=== PATIENT | female | born 1945 | race Caucasian/White ===

== ENCOUNTER 2017-07-22 14:38 | Outpatient (RCR) | payer MEDICARE ==
[2016-11-02 11:11] VITALS: BMI 41.5
[2017-07-13 12:47] VITALS: BP 116/85
[2017-07-13 12:55] LABS: PLATELET COUNT, AUTOMATED 285 K/uL (150-450)
[~2017-07-22 14:38] MED LIST: ACET-1966 PO; ADV250/50 INH; ALB18R IH; ALBU2.5V36 INH; ALBU2.5V44 IH; ALBU8.5H IH; ALBU8.5H11 INH; ATOR20TA65 PO; AZIT-1 PO; AZIT-18 PO; CEFU500T50 PO; CHOL10005 PO; CHOL200074 PO; CLIN-75 PO; CYCL-277 PO; DABI150C3 PO; DICL100G39 TOP; DICL100G39 TP; DILT120C28 PO; DILT120T PO; DOC100 PO; FERR-53 PO; FLU IM; FLU45SYR17 IM; FLU45SYR25 IM ONLY; FLUT1DIS28 IH; FURO-45 PO; FURO-47 PO; FURO40TA35 PO; FURO80TA70 PO; GOLYTE PO; GUAI600T57 PO; HYDR-385 PO; LEVO-85 PO; LIDO700A19 TP; LIDO700A29 TD; METH4TAB66 PO; METO-253 PO; METO25TA93 PO; OMEP-137 PO; OXYGEN INH; OXYGENHOME INH; PNEU0.5D3 IM; POTA15TA PO; POTA20TA10 PO; POTA20TA85 PO; POTA20TA94 PO; POTT20 PO; PRE10 PO; PRED-1 PO; PRED20TA6 PO; Portable Oxygen; RIVA20TA PO; SPIR25TA78 PO; SULF-198 PO; TIO18R INH; TRAM-420 PO; TRIA15CR40 TP; UMEC62.5 IH; UMEC62.5 INH; WAR25 PO; [UNRECOGNIZED DRUG - CODE] MC; [UNRECOGNIZED DRUG - OTHER]
[2017-07-22 14:54] VITALS: BP 122/70
--- NOTE | 2017-07-22 20:22 | ONCOLOGY FOLLOW UP NOTE ---
EVENT DATE: July 22, 2017 DIAGNOSES 1. 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 2. Negative genetic testing for Topete syndrome. 3. Multiple thyroid nodules. 4. Chronic obstructive pulmonary disease. 5. History of congestive heart failure. 6. History of hypertension. CHIEF COMPLAINT The patient is here today for followup of her colon cancer. ONCOLOGY HISTORY The patient is a 72-year-old female who presented with rectal bleeding and patient ended up having colonoscopy done on December 05, 2015, and there were about ten polyps between sessile and pedunculated. Most of them were sessile in different parts of the colon. There were two in the descending colon with sessile polyps. Another two sessile polyps in the mid-transverse colon. There were two sessile polyps in the mid descending colon and two pedunculated polyps in the distal descending colon. There were three sessile polyps in the sigmoid colon. Not all the polyps were resected, but the polyp from the ascending colon was tubulovillous adenoma. Another one from the distal descending colon was tubovillous adenoma. Another one in the ascending colon was with no diagnostic abnormality, but there was a pedunculated polyp from the distal descending colon which came back positive for moderately differentiated adenocarcinoma with tubulovillous adenoma showing high grade dysplasia. The tumor invades the submucosa, but no lymphovascular invasion or perineural invasion. The cauterized margin was free of carcinoma, but appears focally involved by the adenoma. So, the tumor was staged as stage I (pT1 pNx cM0). KRAS and BRAF mutations from the tumor came back negative and NRAS mutation was also negative. CT of chest, abdomen and pelvis done on December 14, 2015 was significant for multiple right-sided thyroid nodules including a nodule with thick calcified rim, increased in size to 2.5 cm. There was moderate compression fracture of lumbar 5 and heterogenous spleen, but other than that the patient does not have any other problem. There was some right lower lobe atelectasis and linear scarring versus atelectasis in the left lower lobe. The patient had a positive family history in her mother and two brothers. All of them had colon cancer between sixty to seventy years of age. With the number of polyps detected during colonoscopy, I believe the patient could have genetic mutation consistent with Topete syndrome. Genetic testing by [facility] for Topete Syndrome came back negative. HISTORY OF PRESENT ILLNESS The patient is here today for followup of her colon cancer. She is doing fine currently. Apart from having easy bruising from her Pradaxa therapy, the patient does not have any other problem. She denies any GI symptoms. PAST MEDICAL HISTORY 1. Colon cancer diagnosed November 2015. 2. History of anemia. 3. Congestive heart failure. 4. COPD. 5. Hypertension. 6. History of heart disease. PAST SURGICAL HISTORY 1. . 2. Cholecystectomy. 3. Rods in the left femur because of fracture. SOCIAL HISTORY The patient is a . She has two daughters and one son. She quit smoking twenty years ago after a half pack a day for twenty years. Denies any abuse of alcohol or illicit drugs. FAMILY HISTORY Mother had colon cancer in her sixties. Maternal grandmother had head and neck cancer. Brother had colon cancer in his seventies. Another brother with colon cancer in his sixties. CURRENT MEDICATIONS 1. Omeprazole 20 mg tablet daily. 2. Advair 250/50, one puff twice daily. 3. Cyclobenzaprine 5 mg three times daily. 4. Lasix 40 mg daily. 5. Hydrocodone/acetaminophen 5/325 mg one tablet q.6h. 6. Ellipta 62.5 mcg by inhalation. 7. Metoprolol 50 mg twice daily. 8. Pradaxa 150 mg twice daily. 9. Spironolactone 25 mg twice daily. 10. Voltaren 1% gel as needed for pain. 11. ProAir HFA 8.5 gm take two puffs by inhalation three times daily. 12. Vitamin D3 at 1000 units orally daily. ALLERGIES XELODA, which causes itching. REVIEW OF SYSTEMS CONSTITUTIONAL: No appetite or weight change. No fever, chills or sweating. No recent infection. HEENT: Ears: No tinnitus or hearing problem. Nose: No nasal discharge or epistaxis. Throat: No sore throat or mouth ulcers. Eyes: No diplopia or visual changes. RESPIRATORY: No shortness of breath. No cough, expectoration or hemoptysis. CARDIOVASCULAR: No chest pain, orthopnea, or paroxysmal nocturnal dyspnea (PND) . No edema. No palpitations. GASTROINTESTINAL: No nausea or vomiting. No diarrhea or constipation. No change in bowel movements. No heartburn or swallowing difficulties. No abdominal pain. No jaundice. No hematemesis, melena or rectal bleeding. GENITOURINARY: No hematuria or dysuria. MUSCULOSKELETAL: No pain in the muscles, joints or bones. NEUROLOGICAL: No tingling or numbness in the hands or feet. No headaches or convulsions. HEMATOLOGIC/LYMPHATIC: The patient has easy bruising from Pradaxa therapy. SKIN: No skin rash or lumps. PSYCHIATRIC: No anxiety or depression. PHYSICAL EXAMINATION GENERAL: Looks stable. Well-developed, well-nourished, and in no acute distress. VITAL SIGNS: Blood pressure 122/70, pulse 69 per minute, respirations 16 per minute, temperature 97.2, pulse ox 96% on room air. HEENT: Head: Atraumatic. No sinus tenderness to palpation. Eyes: No icterus or conjunctivitis. Mouth and throat: No oral thrush or mucositis. NECK: Supple. No cervical or supraclavicular lymphadenopathy. LUNGS: She has diminished breath sounds bilaterally. HEART: Regular rate and rhythm. No gallops, murmurs, clicks or rubs. ABDOMEN: Soft and lax. No tenderness. No hepatosplenomegaly. No masses. EXTREMITIES: No cyanosis, clubbing or edema. LYMPHATICS: No peripheral lymphadenopathy. NEUROLOGICAL: Conscious, alert and oriented times three. No focal motor or sensory deficits. PSYCHIATRIC: Mood and affect appear normal. SKIN: No skin rash, bruise or purpuric eruption. DIAGNOSTIC DATA CBC showed white count 8.4, hemoglobin 12.3, hematocrit 38.4, platelets 285, 000. Chem panel totally normal except potassium 3, chloride 95, carbon dioxide 33, blood sugar 145, alkaline phosphatase 131. CEA is 4.1 which is stable, it was 4 last visit. ASSESSMENT 1. 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 No lymphovascular invasion. Margins were negative for carcinoma, but were positive for adenoma. KRAS, NRAS , BRAF mutation all came back negative, so the patient has wild type mutation. Given her early stage there was no indication of adjuvant chemotherapy, and the patient is doing fine currently. Her genetic testing for Topete syndrome came back negative. Her CEA is stable, currently 4.1 which is up from 4. I am planning to continue followup. I will see her again in six months with CBC, chem panel and CEA at that time. 2. Positive family history of polyps of the colon, including the mother and two brothers, but she tested negative for Otpete syndrome. 3. Multiple thyroid nodules on the right side, followed by Dr. Prajapati. 4. Chronic obstructive pulmonary disease. 6. History of pulmonary embolus, on Pradaxa 150 mg twice daily. PLAN 1. Continue followup. 2. The patient to return in six months with CBC, chem panel and CEA. 3. Continue Pradaxa 150 mg twice daily. 5. The patient to contact us for any new concerns or complaints. ART
[2017-08-06] MEDS ORDERED: POTA20TA10 PO (16:13)
== END 2017-08-13 09:01 | disposition home or self-care (01) ==
LOC: ONC 14:38
PROVIDERS: ATTEND Internal Medicine Hematology
DX: Z85.038 Personal history of other malignant neoplasm of large intestine (principal); E04.2 Nontoxic multinodular goiter; J44.9 Chronic obstructive pulmonary disease, unspecified; Z86.711 Personal history of pulmonary embolism; Z79.01 Long term (current) use of anticoagulants; I50.9 Heart failure, unspecified; Z87.891 Personal history of nicotine dependence; Z79.899 Other long term (current) drug therapy
CPT/HCPCS: 36415; 82040; 82247; 82310; 82374; 82378; 82435; 82565; 82947; 84075; 84132; 84155; 84295; 84450; 84460; 84520; 85025; 99212

== ENCOUNTER → 2017-07-30 | Outpatient (CLI) | payer MEDICARE ==
[2016-11-02 11:11] VITALS: BMI 41.5
== END ==
LOC: LAB 14:45
PROVIDERS: ATTEND Nurse Practitioner Family
DX: E87.6 Hypokalemia (principal)
CPT/HCPCS: 36415; 82310; 82374; 82435; 82565; 82947; 84132; 84295; 84520

== ENCOUNTER 2018-01-28 15:45 | Outpatient (RCR) | payer MEDICARE ==
[2016-11-02 11:11] VITALS: Wt 107.9 kg
[2018-01-19 13:43] LABS: PLATELET COUNT, AUTOMATED 288 K/uL (150-450)
[2018-01-19 13:49] VITALS: BP 106/62
[~2018-01-28 15:45] MED LIST changes: +SPIR25TA80 PO
[2018-01-28 16:12] VITALS: BP 125/70
--- NOTE | 2018-01-28 19:16 | ONCOLOGY FOLLOW UP NOTE ---
EVENT DATE: January 28, 2018 DIAGNOSES 1. 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 2. Negative genetic testing for Topete syndrome. 3. Multiple thyroid nodules. 4. Chronic obstructive pulmonary disease. 5. History of congestive heart failure. 6. History of hypertension. CHIEF COMPLAINT The patient is here today for followup of her colon cancer. ONCOLOGY HISTORY The patient is a 72-year-old female who presented with rectal bleeding and patient ended up having colonoscopy done on December 05, 2015, and there were about ten polyps between sessile and pedunculated. Most of them were sessile in different parts of the colon. There were two in the descending colon with sessile polyps. Another two sessile polyps in the mid-transverse colon. There were two sessile polyps in the mid descending colon and two pedunculated polyps in the distal descending colon. There were three sessile polyps in the sigmoid colon. Not all the polyps were resected, but the polyp from the ascending colon was tubulovillous adenoma. Another one from the distal descending colon was tubovillous adenoma. Another one in the ascending colon was with no diagnostic abnormality, but there was a pedunculated polyp from the distal descending colon which came back positive for moderately differentiated adenocarcinoma with tubulovillous adenoma showing high grade dysplasia. The tumor invades the submucosa, but no lymphovascular invasion or perineural invasion. The cauterized margin was free of carcinoma, but appears focally involved by the adenoma. So, the tumor was staged as stage I (pT1 pNx cM0). KRAS and BRAF mutations from the tumor came back negative and NRAS mutation was also negative. CT of chest, abdomen and pelvis done on December 14, 2015 was significant for multiple right-sided thyroid nodules including a nodule with thick calcified rim, increased in size to 2.5 cm. There was moderate compression fracture of lumbar 5 and heterogenous spleen, but other than that the patient does not have any other problem. There was some right lower lobe atelectasis and linear scarring versus atelectasis in the left lower lobe. The patient had a positive family history in her mother and two brothers. All of them had colon cancer between sixty to seventy years of age. With the number of polyps detected during colonoscopy, I believe the patient could have genetic mutation consistent with Topete syndrome. Genetic testing by [facility] for Topete Syndrome came back negative. HISTORY OF PRESENT ILLNESS The patient is here today for followup of her colon cancer. She is complaining of cough with expectoration. She has arthritis in her hands. She is complaining of passing blood in the stools for one day only, but the patient was using Pradaxa. PAST MEDICAL HISTORY 1. Colon cancer diagnosed November 2015. 2. History of anemia. 3. Congestive heart failure. 4. COPD. 5. Hypertension. 6. History of heart disease. PAST SURGICAL HISTORY 1. . 2. Cholecystectomy. 3. Rods in the left femur because of fracture. SOCIAL HISTORY The patient is a . She has two daughters and one son. She quit smoking twenty years ago after a half pack a day for twenty years. Denies any abuse of alcohol or illicit drugs. FAMILY HISTORY Mother had colon cancer in her sixties. Maternal grandmother had head and neck cancer. Brother had colon cancer in his seventies. Another brother with colon cancer in his sixties. CURRENT MEDICATIONS 1. Omeprazole 20 mg tablet daily. 2. Advair 250/50, one puff twice daily. 3. Cyclobenzaprine 5 mg three times daily. 4. Lasix 40 mg daily. 5. Hydrocodone/acetaminophen 5/325 mg one tablet q.6h. 6. Ellipta 62.5 mcg by inhalation. 7. Metoprolol 50 mg twice daily. 8. Pradaxa 150 mg twice daily. 9. Spironolactone 25 mg twice daily. 10. Voltaren 1% gel as needed for pain. 11. ProAir HFA 8.5 gm take two puffs by inhalation three times daily. 12. Vitamin D3 at 1000 units orally daily. ALLERGIES XELODA, which causes itching. REVIEW OF SYSTEMS CONSTITUTIONAL: No appetite or weight change. No fever, chills or sweating. No recent infection. HEENT: Ears: No tinnitus or hearing problem. Nose: No nasal discharge or epistaxis. Throat: No sore throat or mouth ulcers. Eyes: No diplopia or visual changes. RESPIRATORY: No shortness of breath. Sheh as cough with expectoration. No hemoptysis. CARDIOVASCULAR: No chest pain, orthopnea, or paroxysmal nocturnal dyspnea (PND) . No edema. No palpitations. GASTROINTESTINAL: No nausea or vomiting. No diarrhea or constipation. No change in bowel movements. No heartburn or swallowing difficulties. No abdominal pain. No jaundice. No hematemesis, melena. She has had one episode of bleeding per rectum which resolved spontaneously. GENITOURINARY: No hematuria or dysuria. MUSCULOSKELETAL: She has arthritis n the hands. NEUROLOGICAL: No tingling or numbness in the hands or feet. No headaches or convulsions. HEMATOLOGIC/LYMPHATIC: The patient has easy bruising from Pradaxa therapy. SKIN: No skin rash or lumps. PSYCHIATRIC: No anxiety or depression. PHYSICAL EXAMINATION GENERAL: Looks stable. Well-developed, well-nourished, and in no acute distress. VITAL SIGNS: Blood pressure 125/70, pulse 98 per minute, respirations 16 per minute, temperature 98, pulse ox 89% on 3L oxygen. HEENT: Head: Atraumatic. No sinus tenderness to palpation. Eyes: No icterus or conjunctivitis. Mouth and throat: No oral thrush or mucositis. NECK: Supple. No cervical or supraclavicular lymphadenopathy. LUNGS: She has diminished breath sounds bilaterally. HEART: Regular rate and rhythm. No gallops, murmurs, clicks or rubs. ABDOMEN: Soft and lax. No tenderness. No hepatosplenomegaly. No masses. EXTREMITIES: No cyanosis, clubbing or edema. LYMPHATICS: No peripheral lymphadenopathy. NEUROLOGICAL: Conscious, alert and oriented times three. No focal motor or sensory deficits. PSYCHIATRIC: Mood and affect appear normal. SKIN: No skin rash, bruise or purpuric eruption. DIAGNOSTIC DATA CBC showed white count 7.1, hemoglobin 11.9, hematocrit 37.2, platelets 288, 000. Chem panel totally normal except chloride 95, carbon dioxide 36, blood sugar 111, calcium 8, albumin 3.3, alkaline phosphatase 129. CEA is 5.1, which is up from 4.1 with his last visit. ASSESSMENT 1. 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 No lymphovascular invasion. Margins were negative for carcinoma, but were positive for adenoma. KRAS, NRAS , BRAF mutation all came back negative, so the patient has wild type mutation. Given her early stage there was no indication of adjuvant chemotherapy, and the patient did fine. Her genetic testing for Topete syndrome came back negative. Her CEA showed gradual rise lately. It eliezer from 4 to 4.1 and currently 5.1. I am planning to get a PET/CT scan for further evaluation especially with her history of one episode of passing blood in her stools, which the patient saw due to her blood thinner with Pradaxa. I will see her in a week for further evaluation and management after the PET scan. 2. Positive family history for polyps of the colon, including mother and two brothers, but she tested negative for Topete syndrome. 3. Multiple thyroid nodules on the right side, followed by Dr. Prajapati. 4. Chronic obstructive pulmonary disease. 6. History of pulmonary embolism, on Pradaxa 150 mg twice daily. PLAN 1. PET CT scan . 2. Patient to return in one week for further evaluation and management. 3. Continue Pradaxa 150 mg twice daily. 5. The patient to contact us for any new concerns or complaints. ART
== END 2018-02-01 14:29 | disposition home or self-care (01) ==
LOC: ONC 15:45
PROVIDERS: ATTEND Internal Medicine Hematology
DX: C18.9 Malignant neoplasm of colon, unspecified (principal); E04.2 Nontoxic multinodular goiter; J44.9 Chronic obstructive pulmonary disease, unspecified; Z86.711 Personal history of pulmonary embolism; Z79.01 Long term (current) use of anticoagulants; R05 Cough; Z87.891 Personal history of nicotine dependence; Z79.899 Other long term (current) drug therapy
CPT/HCPCS: 36415; 82378; 85025; G0463; 82040; 82247; 82310; 82374; 82435; 82565; 82947; 84075; 84132; 84155; 84295; 84450; 84460; 84520; 99212

== ENCOUNTER → 2018-03-31 | Outpatient (CLI) | payer MEDICARE ==
[2016-11-02 11:11] VITALS: BMI 41.5
== END ==
LOC: RESP 20:09
PROVIDERS: ATTEND Nurse Practitioner Family
DX: G47.33 Obstructive sleep apnea (adult) (pediatric) (principal); G47.61 Periodic limb movement disorder; G47.36 Sleep related hypoventilation in conditions classified elsewhere

== ENCOUNTER 2018-04-22 15:12 | Outpatient (RCR) | payer MEDICARE ==
[2016-11-02 11:11] VITALS: Wt 103.2 kg
[2018-02-18 12:53] VITALS: BP 114/74
--- NOTE | 2018-03-07 10:13 | ONCOLOGY FOLLOW UP NOTE ---
]EVENT DATE: January 28, 2018 DIAGNOSES 1. 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 2. Negative genetic testing for Topete syndrome. 3. Multiple thyroid nodules. 4. Chronic obstructive pulmonary disease. 5. History of congestive heart failure. 6. History of hypertension. CHIEF COMPLAINT The patient is here today for followup of her colon cancer. ONCOLOGY HISTORY The patient is a 72-year-old female who presented with rectal bleeding and patient ended up having colonoscopy done on December 05, 2015, and there were about ten polyps between sessile and pedunculated. Most of them were sessile in different parts of the colon. There were two in the descending colon with sessile polyps. Another two sessile polyps in the mid-transverse colon. There were two sessile polyps in the mid descending colon and two pedunculated polyps in the distal descending colon. There were three sessile polyps in the sigmoid colon. Not all the polyps were resected, but the polyp from the ascending colon was tubulovillous adenoma. Another one from the distal descending colon was tubovillous adenoma. Another one in the ascending colon was with no diagnostic abnormality, but there was a pedunculated polyp from the distal descending colon which came back positive for moderately differentiated adenocarcinoma with tubulovillous adenoma showing high grade dysplasia. The tumor invades the submucosa, but no lymphovascular invasion or perineural invasion. The cauterized margin was free of carcinoma, but appears focally involved by the adenoma. So, the tumor was staged as stage I (pT1 pNx cM0). KRAS and BRAF mutations from the tumor came back negative and NRAS mutation was also negative. CT of chest, abdomen and pelvis done on December 14, 2015 was significant for multiple right-sided thyroid nodules including a nodule with thick calcified rim, increased in size to 2.5 cm. There was moderate compression fracture of lumbar 5 and heterogenous spleen, but other than that the patient does not have any other problem. There was some right lower lobe atelectasis and linear scarring versus atelectasis in the left lower lobe. The patient had a positive family history in her mother and two brothers. All of them had colon cancer between sixty to seventy years of age. With the number of polyps detected during colonoscopy, I believe the patient could have genetic mutation consistent with Topete syndrome. Genetic testing by [facility] for Topete Syndrome came back negative. HISTORY OF PRESENT ILLNESS The patient is here today for followup of her colon cancer. She is complaining of cough with expectoration. She has arthritis in her hands. She is complaining of passing blood in the stools for one day only, but the patient was using Pradaxa. PAST MEDICAL HISTORY 1. Colon cancer diagnosed November 2015. 2. History of anemia. 3. Congestive heart failure. 4. COPD. 5. Hypertension. 6. History of heart disease. PAST SURGICAL HISTORY 1. . 2. Cholecystectomy. 3. Rods in the left femur because of fracture. SOCIAL HISTORY The patient is a . She has two daughters and one son. She quit smoking twenty years ago after a half pack a day for twenty years. Denies any abuse of alcohol or illicit drugs. FAMILY HISTORY Mother had colon cancer in her sixties. Maternal grandmother had head and neck cancer. Brother had colon cancer in his seventies. Another brother with colon cancer in his sixties. CURRENT MEDICATIONS 1. Omeprazole 20 mg tablet daily. 2. Advair 250/50, one puff twice daily. 3. Cyclobenzaprine 5 mg three times daily. 4. Lasix 40 mg daily. 5. Hydrocodone/acetaminophen 5/325 mg one tablet q.6h. 6. Ellipta 62.5 mcg by inhalation. 7. Metoprolol 50 mg twice daily. 8. Pradaxa 150 mg twice daily. 9. Spironolactone 25 mg twice daily. 10. Voltaren 1% gel as needed for pain. 11. ProAir HFA 8.5 gm take two puffs by inhalation three times daily. 12. Vitamin D3 at 1000 units orally daily. ALLERGIES XELODA, which causes itching. REVIEW OF SYSTEMS CONSTITUTIONAL: No appetite or weight change. No fever, chills or sweating. No recent infection. HEENT: Ears: No tinnitus or hearing problem. Nose: No nasal discharge or epistaxis. Throat: No sore throat or mouth ulcers. Eyes: No diplopia or visual changes. RESPIRATORY: No shortness of breath. Sheh as cough with expectoration. No hemoptysis. CARDIOVASCULAR: No chest pain, orthopnea, or paroxysmal nocturnal dyspnea (PND) . No edema. No palpitations. GASTROINTESTINAL: No nausea or vomiting. No diarrhea or constipation. No change in bowel movements. No heartburn or swallowing difficulties. No abdominal pain. No jaundice. No hematemesis, melena. She has had one episode of bleeding per rectum which resolved spontaneously. GENITOURINARY: No hematuria or dysuria. MUSCULOSKELETAL: She has arthritis n the hands. NEUROLOGICAL: No tingling or numbness in the hands or feet. No headaches or convulsions. HEMATOLOGIC/LYMPHATIC: The patient has easy bruising from Pradaxa therapy. SKIN: No skin rash or lumps. PSYCHIATRIC: No anxiety or depression. PHYSICAL EXAMINATION GENERAL: Looks stable. Well-developed, well-nourished, and in no acute distress. VITAL SIGNS: Blood pressure 125/70, pulse 98 per minute, respirations 16 per minute, temperature 98, pulse ox 89% on 3L oxygen. HEENT: Head: Atraumatic. No sinus tenderness to palpation. Eyes: No icterus or conjunctivitis. Mouth and throat: No oral thrush or mucositis. NECK: Supple. No cervical or supraclavicular lymphadenopathy. LUNGS: She has diminished breath sounds bilaterally. HEART: Regular rate and rhythm. No gallops, murmurs, clicks or rubs. ABDOMEN: Soft and lax. No tenderness. No hepatosplenomegaly. No masses. EXTREMITIES: No cyanosis, clubbing or edema. LYMPHATICS: No peripheral lymphadenopathy. NEUROLOGICAL: Conscious, alert and oriented times three. No focal motor or sensory deficits. PSYCHIATRIC: Mood and affect appear normal. SKIN: No skin rash, bruise or purpuric eruption. DIAGNOSTIC DATA CBC showed white count 7.1, hemoglobin 11.9, hematocrit 37.2, platelets 288, 000. Chem panel totally normal except chloride 95, carbon dioxide 36, blood sugar 111, calcium 8, albumin 3.3, alkaline phosphatase 129. CEA is 5.1, which is up from 4.1 with his last visit. ASSESSMENT 1. 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 No lymphovascular invasion. Margins were negative for carcinoma, but were positive for adenoma. KRAS, NRAS , BRAF mutation all came back negative, so the patient has wild type mutation. Given her early stage there was no indication of adjuvant chemotherapy, and the patient did fine. Her genetic testing for Topete syndrome came back negative. Her CEA showed gradual rise lately. It eliezer from 4 to 4.1 and currently 5.1. I am planning to get a PET/CT scan for further evaluation especially with her history of one episode of passing blood in her stools, which the patient saw due to her blood thinner with Pradaxa. I will see her in a week for further evaluation and management after the PET scan. 2. Positive family history for polyps of the colon, including mother and two brothers, but she tested negative for Topete syndrome. 3. Multiple thyroid nodules on the right side, followed by Dr. Prajapati. 4. Chronic obstructive pulmonary disease. 6. History of pulmonary embolism, on Pradaxa 150 mg twice daily. PLAN 1. PET CT scan . 2. Patient to return in one week for further evaluation and management. 3. Continue Pradaxa 150 mg twice daily. 5. The patient to contact us for any new concerns or complaints. <Electronically signed by EBENEZER FROST MD> D/ [id number] KATTY CC: RILEY BRINK APRN-C MTDD
[2018-04-22 15:17] VITALS: BP 127/76
[2018-04-22] MEDS ORDERED: INFLUENZA VIRUS VAC 0.5ML SYR IM ONLY ONE (15:30)
--- NOTE | 2018-04-23 10:22 | [facility] ONCOLOGY NOTE ---
EVENT DATE: April 22, 2018 DIAGNOSES 1. 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 2. Negative genetic testing for Topete syndrome. 3. Multiple thyroid nodules. 4. Chronic obstructive pulmonary disease. 5. History of congestive heart failure. 6. History of hypertension. CHIEF COMPLAINT The patient is here today for followup of her colon cancer. ONCOLOGY HISTORY The patient is a 72-year-old female who presented with rectal bleeding and patient ended up having colonoscopy done on December 05, 2015, and there were about ten polyps between sessile and pedunculated. Most of them were sessile in different parts of the colon. There were two in the descending colon with sessile polyps. Another two sessile polyps in the mid-transverse colon. There were two sessile polyps in the mid descending colon and two pedunculated polyps in the distal descending colon. There were three sessile polyps in the sigmoid colon. Not all the polyps were resected, but the polyp from the ascending colon was tubulovillous adenoma. Another one from the distal descending colon was tubovillous adenoma. Another one in the ascending colon was with no diagnostic abnormality, but there was a pedunculated polyp from the distal descending colon which came back positive for moderately differentiated adenocarcinoma with tubulovillous adenoma showing high grade dysplasia. The tumor invades the submucosa, but no lymphovascular invasion or perineural invasion. The cauterized margin was free of carcinoma, but appears focally involved by the adenoma. So, the tumor was staged as stage I (pT1 pNx cM0). KRAS and BRAF mutations from the tumor came back negative and NRAS mutation was also negative. CT of chest, abdomen and pelvis done on December 14, 2015 was significant for multiple right-sided thyroid nodules including a nodule with thick calcified rim, increased in size to 2.5 cm. There was moderate compression fracture of lumbar 5 and heterogenous spleen, but other than that the patient does not have any other problem. There was some right lower lobe atelectasis and linear scarring versus atelectasis in the left lower lobe. The patient had a positive family history in her mother and two brothers. All of them had colon cancer between sixty to seventy years of age. With the number of polyps detected during colonoscopy, I believe the patient could have genetic mutation consistent with Topete syndrome. Genetic testing by [facility] for Topete Syndrome came back negative. HISTORY OF PRESENT ILLNESS Patient is here today for followup of her colon cancer. She is doing very well currently. She has some arthritis in her hands. PAST MEDICAL HISTORY 1. Colon cancer diagnosed November 2015. 2. History of anemia. 3. Congestive heart failure. 4. COPD. 5. Hypertension. 6. History of heart disease. PAST SURGICAL HISTORY 1. . 2. Cholecystectomy. 3. Rods in the left femur because of fracture. SOCIAL HISTORY The patient is a . She has two daughters and one son. She quit smoking twenty years ago after a half pack a day for twenty years. Denies any abuse of alcohol or illicit drugs. FAMILY HISTORY Mother had colon cancer in her sixties. Maternal grandmother had head and neck cancer. Brother had colon cancer in his seventies. Another brother with colon cancer in his sixties. CURRENT MEDICATIONS 1. Omeprazole 20 mg tablet daily. 2. Advair 250/50, one puff twice daily. 3. Cyclobenzaprine 5 mg three times daily. 4. Lasix 40 mg daily. 5. Hydrocodone/acetaminophen 5/325 mg one tablet q.6h. 6. Ellipta 62.5 mcg by inhalation. 7. Metoprolol 50 mg twice daily. 8. Pradaxa 150 mg twice daily. 9. Spironolactone 25 mg twice daily. 10. Voltaren 1% gel as needed for pain. 11. ProAir HFA 8.5 gm take two puffs by inhalation three times daily. 12. Vitamin D3 at 1000 units orally daily. ALLERGIES XELODA, which causes itching. REVIEW OF SYSTEMS CONSTITUTIONAL: No appetite or weight change. No fever, chills or sweating. No recent infection. HEENT: Ears: No tinnitus or hearing problem. Nose: No nasal discharge or epistaxis. Throat: No sore throat or mouth ulcers. Eyes: No diplopia or visual changes. RESPIRATORY: No shortness of breath. She has as cough with expectoration. No hemoptysis. CARDIOVASCULAR: No chest pain, orthopnea, or paroxysmal nocturnal dyspnea (PND). No edema. No palpitations. GASTROINTESTINAL: No nausea or vomiting. No diarrhea or constipation. No change in bowel movements. No heartburn or swallowing difficulties. No abdominal pain. No jaundice. No hematemesis, melena. She has had one episode of bleeding per rectum which resolved spontaneously. GENITOURINARY: No hematuria or dysuria. MUSCULOSKELETAL: Patient has pain in her hands from arthritis. NEUROLOGICAL: No tingling or numbness in the hands or feet. No headaches or convulsions. HEMATOLOGIC/LYMPHATIC: The patient has easy bruising from Pradaxa therapy. SKIN: No skin rash or lumps. PSYCHIATRIC: No anxiety or depression. PHYSICAL EXAMINATION GENERAL: Looks stable. Well-developed, well-nourished, and in no acute distress. VITAL SIGNS: Blood pressure 127/76, pulse 91 per minute, respirations 16 per minute, temperature 97.2, pulse ox 90% on 3-liter oxygen. HEENT: Head: Atraumatic. No sinus tenderness to palpation. Eyes: No icterus or conjunctivitis. Mouth and throat: No oral thrush or mucositis. NECK: Supple. No cervical or supraclavicular lymphadenopathy. LUNGS: She has diminished breath sounds bilaterally. HEART: Regular rate and rhythm. No gallops, murmurs, clicks or rubs. ABDOMEN: Soft and lax. No tenderness. No hepatosplenomegaly. No masses. EXTREMITIES: No cyanosis, clubbing or edema. LYMPHATICS: No peripheral lymphadenopathy. NEUROLOGICAL: Conscious, alert and oriented times three. No focal motor or sensory deficits. PSYCHIATRIC: Mood and affect appear normal. SKIN: No skin rash, bruise or purpuric eruption. DIAGNOSTIC DATA PET/CT scan done on February 07, 2018 did reveal increased activity identifying nasal junction of the sigmoid colon and descending colon with SUV 3.06. There is also minimal increased uptake in the descending colon with SUV 2.75. Patient had colonoscopy done by Dr. Prajapati done on April 05, 2018 and four polyps were removed, one from the hepatic flexure and it was hyperplastic polyp and three other polyps removed with one from the transverse colon, one from the descending colon and one from the upper rectal area and all came back positive for tubular adenoma. ASSESSMENT 1. Stage I (pT1 pNx cM0) distal descending moderately differentiated adenocarcinoma and tubulovillous polyp, status post polypectomy during colonoscopy done December 07, 2015 for moderately differentiated adenocarcinoma of the colon with tumor invading the submucosa. No lymphovascular invasion. Margins were negative for carcinoma but were positive for adenoma. KRAS, NRAS, BRAF mutation all came back negative so the patient has wild type mutation. There is no indication of adjuvant chemotherapy given her early stage. Her genetic testing for Topete syndrome came back negative. Her CEA showed gradual rise lately. It eliezer from 4 to 4.1 to 5.1 so the patient had a PET/CT scan done on February 07, 2018, which showed increased activity identified near the junction of the sigmoid colon and descending colon with SUV 3.06. There was also minimal increased uptake in the descending colon with SUV 2.75. Patient had colonoscopy on April 05, 2018 and four polyps were removed, one from the hepatic flexure that was hyperplastic polyp, one from transverse colon and one from descending colon and one from the upper rectal and the last three are due to tubular adenoma with plan to repeat colonoscopy in a year. I am planning to check her CBC, chem panel and CEA today and I will see her in three months from now with repeat testing with CBC, chem panel and CEA. 2. Positive family history for polyps of the colon, including mother and two brothers and she tested negative for Topete syndrome. 3. Multiple thyroid nodules on the right side, followed by Dr. Prajapati. 4. Chronic obstructive pulmonary disease. 6. History of pulmonary embolism, on Pradaxa 150 mg twice daily. PLAN 1. CBC, chem panel and CEA today. 2. Patient to return in three months with CBC, chem panel and CEA. 3.. Patient to contact us for any new concerns or complaints. 4. Continue Pradaxa 150 mg twice daily. MTDD
[2018-04-28] MEDS ORDERED: POTA20TA10 PO (13:02)
== END 2018-05-18 ==
LOC: ONC 15:12
PROVIDERS: ATTEND Internal Medicine Hematology
DX: C18.9 Malignant neoplasm of colon, unspecified (principal); E04.2 Nontoxic multinodular goiter; J44.9 Chronic obstructive pulmonary disease, unspecified; Z86.711 Personal history of pulmonary embolism; Z79.01 Long term (current) use of anticoagulants; R05 Cough; Z87.891 Personal history of nicotine dependence; Z79.899 Other long term (current) drug therapy; Z23 Encounter for immunization
CPT/HCPCS: 90471; G0463; Q2037; 90674; 99212

== ENCOUNTER → 2018-04-25 | Outpatient (CLI) | payer MEDICARE ==
[2016-11-02 11:11] VITALS: BMI 41.5
[2018-04-25 09:59] LABS: PLATELET COUNT, AUTOMATED 252 K/uL (150-450)
[2018-04-25 11:22] LABS: LDL CHOLESTEROL 56 mg/dl
== END ==
LOC: LAB 09:32
PROVIDERS: ATTEND Nurse Practitioner Family
DX: D64.9 Anemia, unspecified (principal); I10 Essential (primary) hypertension; R60.9 Edema, unspecified; R73.01 Impaired fasting glucose; E78.5 Hyperlipidemia, unspecified
CPT/HCPCS: 82040; 82247; 82310; 82374; 82435; 82465; 82565; 82947; 83036; 83718; 84075; 84132; 84155; 84295; 84443; 84450; 84460; 84478; 84520; 85025

== ENCOUNTER → 2018-04-25 | Outpatient (CLI) | payer MEDICARE ==
[2016-11-02 11:11] VITALS: BMI 41.5
== END ==
LOC: LAB 09:30
PROVIDERS: ATTEND Internal Medicine Hematology
DX: C18.9 Malignant neoplasm of colon, unspecified (principal)
CPT/HCPCS: 36415; 82378

== ENCOUNTER 2018-07-22 12:55 | Outpatient (RCR) | payer MEDICARE ==
[2016-11-02 11:11] VITALS: Wt 107.8 kg
[2018-07-13 09:08] VITALS: BP 119/71
[2018-07-13 09:30] LABS: PLATELET COUNT, AUTOMATED 227 K/uL (150-450)
[2018-07-22 13:07] VITALS: BP 112/73
--- NOTE | 2018-07-22 16:13 | [facility] ONCOLOGY NOTE ---
EVENT DATE: July 22, 2018 DIAGNOSES 1. 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 2. Negative genetic testing for Topete syndrome. 3. Multiple thyroid nodules. 4. Chronic obstructive pulmonary disease. 5. History of congestive heart failure. 6. History of hypertension. CHIEF COMPLAINT The patient is here today for followup of her colon cancer. ONCOLOGY HISTORY The patient is a 73-year-old female who presented with rectal bleeding and patient ended up having colonoscopy done on December 05, 2015, and there were about ten polyps between sessile and pedunculated. Most of them were sessile in different parts of the colon. There were two in the descending colon with sessile polyps. Another two sessile polyps in the mid-transverse colon. There were two sessile polyps in the mid descending colon and two pedunculated polyps in the distal descending colon. There were three sessile polyps in the sigmoid colon. Not all the polyps were resected, but the polyp from the ascending colon was tubulovillous adenoma. Another one from the distal descending colon was tubovillous adenoma. Another one in the ascending colon was with no diagnostic abnormality, but there was a pedunculated polyp from the distal descending colon which came back positive for moderately differentiated adenocarcinoma with tubulovillous adenoma showing high grade dysplasia. The tumor invades the submucosa, but no lymphovascular invasion or perineural invasion. The cauterized margin was free of carcinoma, but appears focally involved by the adenoma. So, the tumor was staged as stage I (pT1 pNx cM0). KRAS and BRAF mutations from the tumor came back negative and NRAS mutation was also negative. CT of chest, abdomen and pelvis done on December 14, 2015 was significant for multiple right-sided thyroid nodules including a nodule with thick calcified rim, increased in size to 2.5 cm. There was moderate compression fracture of lumbar 5 and heterogenous spleen, but other than that the patient does not have any other problem. There was some right lower lobe atelectasis and linear scarring versus atelectasis in the left lower lobe. The patient had a positive family history in her mother and two brothers. All of them had colon cancer between sixty to seventy years of age. With the number of polyps detected during colonoscopy, I believe the patient could have genetic mutation consistent with Topete syndrome. Genetic testing by [facility] for Topete Syndrome came back negative. HISTORY OF PRESENT ILLNESS Patient is here today for followup of her colon cancer. She is doing fine currently except she bruises easily from her medications but other than that she is totally asymptomatic. PAST MEDICAL HISTORY 1. Colon cancer diagnosed November 2015. 2. History of anemia. 3. Congestive heart failure. 4. COPD. 5. Hypertension. 6. History of heart disease. PAST SURGICAL HISTORY 1. . 2. Cholecystectomy. 3. Rods in the left femur because of fracture. SOCIAL HISTORY The patient is a . She has two daughters and one son. She quit smoking twenty years ago after a half pack a day for twenty years. Denies any abuse of alcohol or illicit drugs. FAMILY HISTORY Mother had colon cancer in her sixties. Maternal grandmother had head and neck cancer. Brother had colon cancer in his seventies. Another brother with colon cancer in his sixties. CURRENT MEDICATIONS 1. Omeprazole 20 mg tablet daily. 2. Advair 250/50, one puff twice daily. 3. Cyclobenzaprine 5 mg three times daily. 4. Lasix 40 mg daily. 5. Hydrocodone/acetaminophen 5/325 mg one tablet q.6h. 6. Ellipta 62.5 mcg by inhalation. 7. Metoprolol 50 mg twice daily. 8. Pradaxa 150 mg twice daily. 9. Spironolactone 25 mg twice daily. 10. Voltaren 1% gel as needed for pain. 11. ProAir HFA 8.5 gm take two puffs by inhalation three times daily. 12. Vitamin D3 at 1000 units orally daily. ALLERGIES XELODA, which causes itching. REVIEW OF SYSTEMS CONSTITUTIONAL: No appetite or weight change. No fever, chills or sweating. No recent infection. HEENT: Ears: No tinnitus or hearing problem. Nose: No nasal discharge or epistaxis. Throat: No sore throat or mouth ulcers. Eyes: No diplopia or visual changes. RESPIRATORY: No shortness of breath. She has as cough with expectoration. No hemoptysis. CARDIOVASCULAR: No chest pain, orthopnea, or paroxysmal nocturnal dyspnea (PND). No edema. No palpitations. GASTROINTESTINAL: No nausea or vomiting. No diarrhea or constipation. No change in bowel movements. No heartburn or swallowing difficulties. No abdominal pain. No jaundice. No hematemesis, melena. She has had one episode of bleeding per rectum which resolved spontaneously. GENITOURINARY: No hematuria or dysuria. MUSCULOSKELETAL: Patient has pain in her hands from arthritis. NEUROLOGICAL: No tingling or numbness in the hands or feet. No headaches or convulsions. HEMATOLOGIC/LYMPHATIC: Patient has easy bruising. SKIN: No skin rash or lumps. PSYCHIATRIC: No anxiety or depression. PHYSICAL EXAMINATION GENERAL: Looks stable. Well-developed, well-nourished, and in no acute distress. VITAL SIGNS: Blood pressure 112/73, pulse 84 per minute, respirations 16 per minute, temperature 97.8, pulse ox 90% on 3-liter oxygen. HEENT: Head: Atraumatic. No sinus tenderness to palpation. Eyes: No icterus or conjunctivitis. Mouth and throat: No oral thrush or mucositis. NECK: Supple. No cervical or supraclavicular lymphadenopathy. LUNGS: She has diminished breath sounds bilaterally. HEART: Regular rate and rhythm. No gallops, murmurs, clicks or rubs. ABDOMEN: Soft and lax. No tenderness. No hepatosplenomegaly. No masses. EXTREMITIES: No cyanosis, clubbing or edema. LYMPHATICS: No peripheral lymphadenopathy. NEUROLOGICAL: Conscious, alert and oriented times three. No focal motor or sensory deficits. PSYCHIATRIC: Mood and affect appear normal. SKIN: No skin rash, bruise or purpuric eruption. DIAGNOSTIC DATA CBC showed white count 5.9, hemoglobin 13.2, hematocrit 40.1, platelets 227,000. Chem panel totally normal except potassium 3.4. CEA is 3.8, which is down from 3.9. ASSESSMENT 1. Stage I (pT1 pNx cM0) distal descending moderately differentiated adenocarcinoma and tubulovillous polyp, status post polypectomy during colonoscopy done December 07, 2015, for moderately differentiated adenocarcinoma of the colon with tumor invading the submucosa. No lymphovascular invasion. Margins were negative for carcinoma but were positive for adenoma. KRAS, NRAS, BRAF mutation all came back negative so the patient has wild type mutation. There is no indication of adjuvant chemotherapy given her early stage. Her genetic testing for Topete syndrome came back negative. CEA showed gradual rise lately. It eliezer from 4 to 4.1 to 5.1 so the patient had a PET/CT scan done on February 07, 2018, which showed increased activity identified near the junction of the sigmoid colon and descending colon with SUV 3.06. There was also minimal increased uptake in the descending colon with SUV 2.75. Patient had colonoscopy on April 05, 2018 and four polyps were removed, one from the hepatic flexure that was hyperplastic polyp, one from transverse colon, one from descending colon and one from the upper rectal and the last three polyps were positive for tubular adenoma with plan for repeat colonoscopy in a year. Her tumor marker is going down lately. It dropped from 3.9 to 3.8 currently. I am planning to continue followup. I will see her again in three months with CBC, chem panel and CEA. 2. Positive family history for polyps of the colon, including mother and two brothers and she tested negative for Topete syndrome. 3. Multiple thyroid nodules on the right side, followed by Dr. Prajapati. 4. Chronic obstructive pulmonary disease. 6. History of pulmonary embolism, on Pradaxa 150 mg twice daily. PLAN 1. Continue followup. 2. Patient to return in three months with CBC, chem panel and CEA. 3.. Continue Pradaxa 150 mg twice daily. 4. Patient to contact us for any new concerns or complaints. ART
[2018-07-31] MEDS ORDERED: MUPI15CR10 TP (07:21)
[2018-08-18] MEDS ORDERED: UMEC62.5 IH (09:28)
[2018-09-07] MEDS ORDERED: OMEP-125 PO (17:08)
[2018-09-14] MEDS ORDERED: UMEC62.5 IH (13:12)
[2018-09-16] MEDS ORDERED: FURO80TA70 PO (11:30)
[2018-10-12] MEDS ORDERED: DABI150C3 PO (13:43)
== END 2018-10-11 ==
LOC: ONC 12:55
PROVIDERS: ATTEND Internal Medicine Hematology
DX: C18.9 Malignant neoplasm of colon, unspecified (principal); E04.2 Nontoxic multinodular goiter; J44.9 Chronic obstructive pulmonary disease, unspecified; Z86.711 Personal history of pulmonary embolism; Z79.01 Long term (current) use of anticoagulants; R05 Cough; Z87.891 Personal history of nicotine dependence; Z79.899 Other long term (current) drug therapy; Z23 Encounter for immunization
CPT/HCPCS: 36415; 82378; 85025; G0463; 82040; 82247; 82310; 82374; 82435; 82565; 82947; 84075; 84132; 84155; 84295; 84450; 84460; 84520; 99212

== ENCOUNTER 2018-07-31 06:36 | Emergency (ER) | payer MEDICARE ==
[2016-11-02 11:11] VITALS: Wt 106.1 kg
[2018-07-31 06:41] VITALS: BP 119/82
[2018-07-31] MEDS ORDERED: MUPI15CR10 TP (07:21)
--- NOTE | 2018-07-31 07:22 | ER Report ---
History and Physical Time Seen By MD: 07:10 Hx. of Stated Complaint: SCRATCHED LEG 2 DAYS AGO AND REPORTS CONTINUED CLEAR DISCHARGE. HPI/ROS CHIEF COMPLAINT: drainage from leg HISTORY OF PRESENT ILLNESS: Pt with hx chf, on lasix, has had no change in amt of peripheral edema, no new leg pain, cp, sob, fevers, scratched her leg recently and has had 2 d of clear serous drainage from anterior robertson in 2 areas. No redness, tenderness, purulence. REVIEW OF SYSTEMS: Respiratory: No cough, no dyspnea. Cardiovascular: No chest pain, no palpitations. Gastrointestinal: No vomiting, no abdominal pain. Musculoskeletal: No back pain. Remainder of the 14 system rev: Yes Allergies: Coded Allergies: rivaroxaban (Verified Allergy, Mild, ITCHING, 07/31/18) Home Meds Active Scripts Mupirocin Calcium (BACTROBAN) 15 Gm Cream..g., 0 TP TID for 7 Days, #1 TUBE Prov:LAURA MAJOR MD 07/31/18 Umeclidinium [place] (Incruse Ellipta) 62.5 Mcg Blst.w.dev, 62.5 MCG IH QAM, #1 1 Refill Prov:RILEY BRINK APRN-C 06/22/18 Furosemide (FUROSEMIDE) 80 Mg Tablet, 1 TAB PO DAILY, #90 TAB 0 Refills Prov:RILEY BRINK APRN-C 06/21/18 Potassium Chloride (Potassium Chloride) 20 Meq Tablet.er, 1 TAB PO BID, #180 TAB 1 Refill Prov:RILEY BRINK APRN 04/28/18 Atorvastatin Calcium (ATORVASTATIN CALCIUM) 20 Mg Tablet, 1 TAB PO QDAY, #90 TAB 1 Refill Prov:RILEY BRINK APRNC 04/12/18 Albuterol Sulfate (VENTOLIN HFA) 18 Gm Inh, 2 PUFF IH Q4H PRN for WHEEZING, #1 INH 1 Refill Prov:RILEY BRINK APRNC 01/11/18 Dabigatran Etexilate Mesylate (PRADAXA) 150 Mg Capsule, 150 MG PO BID, #180 CAPSULE 1 Refill Prov:RILEY BRINK APRN 01/11/18 Omeprazole (OMEPRAZOLE) 20 Mg Tablet.dr, 20 MG PO Wed,,Fridays, #45 TAB 2 Refills Prov:RILEY BRINK CHRISTIAN LEI-C 07/01/17 Albuterol Sulfate 0.083% (ALBUTEROL SULFATE 0.083%) 2.5 Mg/3 Ml Vial.neb, 3 ML INH QID PRN for WHEEZING, #1 BOX 2 Refills Prov:RILEY BRINK APRN-C 12/14/16 [Portable Oxygen] No Conflict Check, EACH, #1 0 Refills Prov:BENITO-RILEY SIEGEL APRNP-C 03/27/16 Reported Medications Fluticasone/Salmeterol (ADVAIR 250-50 DISKUS) 1 Each Disk.w.dev, 2 EACH IH QDAY 05/24/17 Acetaminophen (TYLENOL) 325 Mg Tablet, 325-650 MG PO PRN PRN for pain, TAB 11/01/16 Oxygen (OXYGEN) Inha, 3 L INH DAILY, L 11/01/16 Cholecalciferol (Vitamin D3) (VITAMIN D3) 1,000 Unit Tablet, 1000 UNIT PO DAILY 04/02/14 Reviewed Nurses Notes: Yes Old Medical Records Reviewed: Yes Hx Smoking: Yes (SMOKED 6-7 CIGS/DAY X 40 YRS.) Smoking Status: Former Smoker Exposure to Second Hand Smoke?: Yes Hx Substance Use Disorder: No Hx Alcohol Use: Yes Constitutional Vital Sign - Last 24 Hours 07/31/18 06:41 Temp 97.9 Pulse 81 Resp 24 B/P (MAP) 119/82 Pulse Ox 91 O2 Delivery Nasal Cannula Physical Exam General Appearance: The patient is alert, has no immediate need for airway protection and no current signs of toxicity. [ ] Eyes: Pupils equal and round no injection. Respiratory: Chest is non tender, lungs are clear to auscultation. Cardiac: regular rate and rhythm Musculoskeletal: Extremities have full range of motion and are non tender. Skin: 2 x 4mm epidermal breaks with clear serous drainage. No ttp, surrounding erythema, purulence. Edema bilateral is baseline per pt. No palpable cords. DIFFERENTIAL DIAGNOSIS: After history and physical exam differential diagnosis was considered for infection, VTE, fb, or other emergent etiology. Medical Decision Making ED Course/Re-evaluation ED Course Pt presents with serous drainage no infection. Will place topical abx, bandage, close f/u and pt understands SRP's. Decision to Disposition Date: Jul 31, 2018 Decision to Disposition Time: 07:20 Depart Departure Latest Vital Signs Vital Signs Date Time Temp Pulse Resp B/P (MAP) Pulse Ox O2 Delivery O2 Flow Rate FiO2 07/31/18 06:41 97.9 81 24 119/82 91 Nasal Cannula Impression: Primary Impression: Peripheral edema Condition: Improved Disposition: HOME OR SELF-CARE Referrals: RILEY BRINK APRN [facility] (PCP) 2 Days New Scripts Mupirocin Calcium (BACTROBAN) 15 Gm Cream..g. 0 TP TID for 7 Days, #1 TUBE Prov: LAURA MAJOR MD 07/31/18 Patient Instructions: Edema (ED) Additional Instructions: As we discussed, keep dressing on for up to 48 hours as long as it does not completely soak through. We have supplied another dressing change if you need. Follow up in the next 2 days with your primary doctor to reassess. Please return for worsening edema, redness, increased pain, draining pus, or any concerns. LAURA MAJOR MD Jul 31, 2018 07:22
[2018-07-31] MEDS ORDERED: DIPHTH/TETANUS/ACEL. PERTUSSIS IM ONLY ONE (07:30)
== END 2018-07-31 07:56 | disposition home or self-care (01) ==
LOC: ER 07:11
DX: R60.0 Localized edema (principal)
CPT/HCPCS: 90471; 90715; 99283

== ENCOUNTER → 2018-08-13 | Outpatient (CLI) | payer MEDICARE ==
[2016-11-02 11:11] VITALS: BMI 41.5
[~2018-08-13] MED LIST changes: +MUPI15CR10 TP
== END ==
LOC: RESP 21:04
PROVIDERS: ATTEND Nurse Practitioner Family
DX: Z02.9 Encounter for administrative examinations, unspecified (principal)

== ENCOUNTER → 2018-10-13 | Outpatient (CLI) | payer MEDICARE ==
[2016-11-02 11:11] VITALS: BMI 41.5
[~2018-10-13] MED LIST changes: +BiPap; +OMEP-125 PO
[2018-10-13 13:49] LABS: PLATELET COUNT, AUTOMATED 251 K/uL (150-450)
[2018-10-13 14:42] LABS: LDL CHOLESTEROL 51 mg/dl
== END ==
LOC: LAB 13:19
PROVIDERS: ATTEND Nurse Practitioner Family
DX: J44.9 Chronic obstructive pulmonary disease, unspecified (principal); D64.9 Anemia, unspecified; I50.20 Unspecified systolic (congestive) heart failure; I10 Essential (primary) hypertension; R73.01 Impaired fasting glucose
CPT/HCPCS: 36415; 82040; 82247; 82310; 82374; 82435; 82465; 82565; 82728; 82947; 83036; 83540; 83550; 83718; 84075; 84132; 84155; 84295; 84443; 84450; 84460; 84478; 84520; 85025

== ENCOUNTER 2018-10-21 13:59 | Outpatient (RCR) | payer MEDICARE ==
[2016-11-02 11:11] VITALS: BMI 41.5
[2018-10-21 13:59] VITALS: BP 107/66
[~2018-10-21 13:59] MED LIST changes: -OMEP-125 PO; +OMEP-126 PO
--- NOTE | 2018-10-22 14:42 | [facility] ONCOLOGY NOTE ---
EVENT DATE: October 21, 2018 DIAGNOSES 1. 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 2. Negative genetic testing for Topete syndrome. 3. Multiple thyroid nodules. 4. Chronic obstructive pulmonary disease. 5. History of congestive heart failure. 6. History of hypertension. CHIEF COMPLAINT Patient is here today for followup of her colon cancer. ONCOLOGY HISTORY The patient is a 73-year-old female who presented with rectal bleeding. The patient ended up having colonoscopy done on December 05, 2015, and there were about ten polyps between sessile and pedunculated. Most of them were sessile in different parts of the colon. There were two in the descending colon with sessile polyps, another two sessile polyps in the mid-transverse colon, there were two sessile polyps in the mid descending colon, and two pedunculated polyps in the distal descending colon. There were three sessile polyps in the sigmoid colon. Not all the polyps were resected, but the polyp from the ascending colon was a tubulovillous adenoma. Another one from the distal descending colon was tubovillous adenoma. Another one in the ascending colon was with no diagnostic abnormality, but there was a pedunculated polyp from the distal descending colon which came back positive for moderately differentiated adenocarcinoma with tubulovillous adenoma showing high-grade dysplasia. The tumor invaded the submucosa, but no lymphovascular invasion or perineural invasion. The cauterized margin was free of carcinoma, but appeared focally involved by the adenoma. So, the tumor was staged as stage I (pT1 pNx cM0). KRAS and BRAF mutations from the tumor came back negative, and NRAS mutation was also negative. CT of chest, abdomen, and pelvis done on December 14, 2015, was significant for multiple right-sided thyroid nodules including a nodule with a thick calcified rim, increased in size to 2.5 cm. There was a moderate compression fracture of lumbar 5 and heterogenous spleen, but other than that the patient did not have any other problem. There was some right lower lobe atelectasis and linear scarring versus atelectasis in the left lower lobe. The patient had a positive family history in her mother and two brothers. All of them had colon cancer between 60 to 70 years of age. With the number of polyps detected during colonoscopy, I believe the patient could have genetic mutation consistent with Topete syndrome. Genetic testing by [employer] for Topete syndrome came back negative. HISTORY OF PRESENT ILLNESS Patient is here today for followup of her colon cancer. She is complaining of some pain in her right knee after injury, which is getting better. She bruises easily, but other than that, her general condition is stable. PAST MEDICAL HISTORY 1. Colon cancer diagnosed November 2015. 2. History of anemia. 3. Congestive heart failure. 4. COPD. 5. Hypertension. 6. History of heart disease. PAST SURGICAL HISTORY 1. . 2. Cholecystectomy. 3. Rods in the left femur because of fracture. SOCIAL HISTORY The patient is a . She has two daughters and one son. She quit smoking 20 years ago after a half pack a day for 20 years. Denies any abuse of alcohol or illicit drugs. FAMILY HISTORY Mother had colon cancer in her 60s. Maternal grandmother had head and neck cancer. Brother had colon cancer in his 70s. Another brother with colon cancer in his 60s. CURRENT MEDICATIONS 1. Omeprazole 20 mg tablet daily. 2. Advair 250/50 one puff twice daily. 3. Cyclobenzaprine 5 mg three times daily. 4. Lasix 40 mg daily. 5. Hydrocodone/acetaminophen 5/325 mg one tablet q.6 hours. 6. Ellipta 62.5 mcg by inhalation. 7. Metoprolol 50 mg twice daily. 8. Pradaxa 150 mg twice daily. 9. Spironolactone 25 mg twice daily. 10. Voltaren 1% gel as needed for pain. 11. ProAir HFA 8.5 g, take two puffs by inhalation three times daily. 12. Vitamin D3 at 1000 units orally daily. ALLERGIES XELODA which causes itching. REVIEW OF SYSTEMS CONSTITUTIONAL: No appetite or weight change. No fever, chills, or sweating. No recent infection. HEENT: Ears: No tinnitus or hearing problem. Nose: No nasal discharge or epistaxis. Throat: No sore throat or mouth ulcers. Eyes: No diplopia or visual changes. RESPIRATORY: No shortness of breath. No cough, expectoration, or hemoptysis. CARDIOVASCULAR: No chest pain, orthopnea, or paroxysmal nocturnal dyspnea (PND). No edema. No palpitations. GASTROINTESTINAL: No nausea or vomiting. No diarrhea or constipation. No change in bowel movements. No heartburn or swallowing difficulties. No abdominal pain. No jaundice. No hematemesis, melena, or rectal bleeding. GENITOURINARY: No hematuria or dysuria. MUSCULOSKELETAL: She has pain in her right knee after injury. NEUROLOGICAL: No tingling or numbness in the hands or feet. No headaches or convulsions. HEMATOLOGIC/LYMPHATIC: She bruises easily. No weakness or fatigue. No enlarged lymph nodes. SKIN: No skin rash or lumps. PSYCHIATRIC: No anxiety or depression. PHYSICAL EXAMINATION GENERAL: Looks stable. Well developed, well nourished, and in no acute distress. VITAL SIGNS: Blood pressure 107/66, pulse 77 per minute, respirations 16 per minute, temperature 97, pulse oximetry 91% on 3L oxygen. HEENT: Head: Atraumatic. No sinus tenderness to palpation. Eyes: No icterus or conjunctivitis. Mouth and Throat: No oral thrush or mucositis. NECK: Supple. No cervical or supraclavicular lymphadenopathy. LUNGS: Clear to auscultation and percussion bilaterally. HEART: Regular rate and rhythm. No gallops, murmurs, clicks, or rubs. ABDOMEN: Soft and lax. No tenderness. No hepatosplenomegaly. No masses. EXTREMITIES: No cyanosis, clubbing, or edema. LYMPHATICS: No peripheral lymphadenopathy. NEUROLOGICAL: Conscious, alert, and oriented times three. No focal motor or sensory deficits. PSYCHIATRIC: Mood and affect appear normal. SKIN: No skin rash, bruise, or purpuric eruption. DIAGNOSTIC DATA CBC showed white count 6.7, hemoglobin 11.8, hematocrit 37.1, platelets 251,000. Chem panel totally normal except blood sugar 123. CEA is 3.9, which is stable. ASSESSMENT 1. Stage I (pT1 pNx cM0) distal descending moderately differentiated adenocarcinoma and tubulovillous polyp, status post polypectomy during colonoscopy done December 07, 2015, for moderately differentiated adenocarcinoma of the colon with tumor invading the submucosa. No lymphovascular invasion. Margins were negative for carcinoma, but were positive for adenoma. KRAS, NRAS, BRAF mutations all came back negative, so the patient has wild type mutation. There is no indication of adjuvant chemotherapy given her early stage. Her genetic testing for Topete syndrome came back negative. CEA showed gradual rise lately. It eliezer from 4 to 4.1 to 5.1, so the patient had a PET/CT scan done February 07, 2018, which showed increased activity identified near the junction of the sigmoid colon and descending colon with SUV 3.06. There was also minimal increased uptake in the descending colon with SUV 2.75. Patient had a colonoscopy on April 05, 2018, and four polyps were removed, one from the hepatic flexure that was a hyperplastic polyp, one from transverse colon, one from descending colon, one from the upper rectum, and the last three polyps were positive for tubular adenoma with plan of repeat colonoscopy in a year. Her tumor marker currently is 3.9, which is up from 3.8, which is nearly stable. I am planning to continue followup. I will see her in three months with CBC, chemistry panel, and CEA. 2. Positive family history of polyps of the colon, including mother and two brothers. She tested negative for Topete syndrome. 3. Multiple thyroid nodules on the right side, followed by Dr. Prajapati. 4. Chronic obstructive pulmonary disease. 6. History of pulmonary embolism, on Pradaxa 150 twice daily. PLAN 1. Continue followup. 2. Patient to return in three months with CBC, chem panel, and CEA. 3. Continue Pradaxa 150 mg twice daily. 4. Patient to contact us for any new concerns or complaints. MTDD
[2018-10-26] MEDS ORDERED: UMEC62.5 IH (10:46)
[2018-11-23] MEDS ORDERED: UMEC62.5 IH (14:47)
[2018-12-20] MEDS ORDERED: UMEC62.5 IH (09:40)
== END 2018-12-26 14:05 | disposition home or self-care (01) ==
LOC: ONC 13:59
PROVIDERS: ATTEND Internal Medicine Hematology
DX: C18.6 Malignant neoplasm of descending colon (principal); E04.2 Nontoxic multinodular goiter; J44.9 Chronic obstructive pulmonary disease, unspecified; Z86.711 Personal history of pulmonary embolism; Z79.01 Long term (current) use of anticoagulants; Z79.899 Other long term (current) drug therapy
CPT/HCPCS: 82378; G0463; 99212

== ENCOUNTER → 2018-11-11 | Outpatient (CLI) | payer MEDICARE ==
[2016-11-02 11:11] VITALS: BMI 41.5
[~2018-11-11] MED LIST changes: +OMEP-125 PO; -OMEP-126 PO
[2018-11-11 15:17] LABS: PLATELET COUNT, AUTOMATED 236 K/uL (150-450)
== END ==
LOC: LAB 14:30
PROVIDERS: ATTEND Nurse Practitioner Family
DX: E61.1 Iron deficiency (principal); G25.81 Restless legs syndrome
CPT/HCPCS: 36415; 82728; 83540; 83550; 85025

== ENCOUNTER → 2019-02-13 | Outpatient (CLI) | payer MEDICARE ==
[2016-11-02 11:11] VITALS: BMI 41.5
[~2019-02-13] MED LIST changes: -OMEP-125 PO; +OMEP-126 PO
== END ==
LOC: LAB 16:20
PROVIDERS: ATTEND Nurse Practitioner Family
DX: E61.1 Iron deficiency (principal)
CPT/HCPCS: 36415; 82728; 83540; 83550